=== PATIENT | female | born 1940 | race Caucasian/White ===

== ENCOUNTER 2017-08-15 06:19 | Emergency (ER) | payer MEDICARE, OTHER ==
[~2017-08-15] VITALS: Ht 162.6 cm; Wt 51.7 kg
[2017-08-15 06:47] VITALS: BP 142/73
[2017-08-15] MEDS ORDERED: cefTRIAXone SOD 1,000 MG VL ONE (07:43)
[2017-08-15] MEDS ORDERED: cefTRIAXone SOD 1,000 MG VL IM ONE (07:45)
== END 2017-08-15 08:15 | disposition home or self-care (01) ==
LOC: ER 06:20
DX: L03.113 Cellulitis of right upper limb (principal); E11.9 Type 2 diabetes mellitus without complications; E07.9 Disorder of thyroid, unspecified; Z88.1 Allergy status to other antibiotic agents; Z88.8 Allergy status to other drugs, medicaments and biological substances
CPT/HCPCS: 96372; 99283; J0696

== ENCOUNTER 2017-08-29 03:54 | Emergency (ER) | payer MEDICARE, OTHER ==
[~2017-08-29] VITALS: Ht 165.1 cm; Wt 51.3 kg
[2017-08-29 03:57] VITALS: BP 180/85
[2017-08-29 04:44] LABS: Hemoglobin 13.5 g/dL (12.2-16.2)
[2017-08-29 04:45] LABS: Hematocrit 39.9 % (36.0-46.0); Mean Corpuscular Hemoglobin 35.8 pg (28.0-32.0); Mean Corpuscular Hgb Conc. 33.9 g/dL (32.0-36.0); Mean Corpuscular Volume 105.6 fL (80.0-100.0); Mean Platelet Volume 9.2 fL (6.9-10.8); Platelet Count (auto) 163 10^3/uL (140-450); Red Cell Distribution Width 14.3 % (11.8-14.3); White Blood Cell 3.6 10^3/uL (4.4-10.8)
[2017-08-29 04:54] LABS: Metamyelocytes % 0; Myelocytes % 0; Promyelocytes % 0; Reactive Lymphocytes 0
[2017-08-29 05:03] LABS: Albumin 3.4 g/dL (3.4-5.0); BUN/Creatinine Ratio 22.3; Bilirubin, Total 0.5 mg/dL (0.2-1.0); Calcium 8.8 mg/dL (8.5-10.1); Potassium 4.4 mmol/L (3.5-5.1); Total Protein 6.9 g/dL (6.4-8.2)
[2017-08-29 12:36] LABS: Platelet Estimate Adequate
[2017-08-29 12:37] LABS: Ovalocytes FEW
[2017-08-29 12:38] LABS: Burr Cells FEW; Macrocytosis Moderate
== END 2017-08-29 06:42 | disposition left against medical advice (07) ==
LOC: ER 03:57
DX: L03.113 Cellulitis of right upper limb (principal); Z53.21 Procedure and treatment not carried out due to patient leaving prior to being seen by health care provider
CPT/HCPCS: 36415; 80053; 85007; 85027

== ENCOUNTER → 2019-06-23 | Outpatient (CLI) | payer MEDICARE, OTHER ==
[~2019-06-23] MED LIST: ALBUTEROL SULF 2.5 MG/0.5ML(0.5%) NEB SOLN ONE; ASPI81CH59 PO; BIMA0.01 EACHEYE; BRIM0.2S2 OP; CHOL400C7 PO; DENO60SO; GLUC-163 PO; INSLANTI SC; INSLISPI SC; LEVO25TA6 PO; LOSA25TA38 PO; PROP60CA34 PO
== END | disposition home or self-care (01) ==
LOC: RT 08:36
PROVIDERS: ATTEND Internal Medicine Pulmonary Disease
DX: R05 Cough (principal)
CPT/HCPCS: 94060; J7611

== ENCOUNTER 2021-01-13 11:08 | Emergency (ER) | payer MEDICARE, OTHER ==
[~2021-01-13] VITALS: Ht 160 cm; Wt 53.5 kg
[~2021-01-13 11:08] MED LIST changes: -ALBUTEROL SULF 2.5 MG/0.5ML(0.5%) NEB SOLN ONE
[2021-01-13 12:28] LABS: Urine WBC None Seen /hpf (0 - 5)
[2021-01-13 12:40] LABS: White Blood Cell 2.4 10^3/uL (4.4-10.8)
[2021-01-13 12:42] LABS: Hematocrit 40.5 % (36.0-46.0); Hemoglobin 13.7 g/dL (12.2-16.2); Mean Corpuscular Hemoglobin 34.9 pg (28.0-32.0); Mean Corpuscular Hgb Conc. 33.8 g/dL (32.0-36.0); Mean Corpuscular Volume 103.2 fL (80.0-100.0); Red Blood Cells 3.92 10^6/uL (4.0-5.20); Red Cell Distribution Width 14.6 % (11.8-14.3)
[2021-01-13 12:53] LABS: Anion Gap 4 (5-15); Blood Urea Nitrogen 12 mg/dL (7-18); Calcium 9.3 mg/dL (8.5-10.1); Carbon Dioxide 29 mmol/L (21-32); Chloride 104 mmol/L (98-107); Glucose 144 mg/dL (74-106); Potassium 3.8 mmol/L (3.5-5.1); Sodium 137 mmol/L (136-145)
[2021-01-13 13:02] LABS: BUN/Creatinine Ratio 13.3; GFR African American 77 mL/min; GFR Non-African American 64 mL/min
[2021-01-13 13:24] LABS: Urine Bacteria NONE SEEN /hpf (None Seen); Urine Blood Negative /uL (Negative); Urine Specific Gravity 1.005 (1.001-1.035)
[2021-01-13 13:35] LABS: Basophils % (manual) 0 (0.0-2.0); Blast Cells 0; Myelocytes % 0; Promyelocytes % 0; Reactive Lymphocytes 0
[2021-01-13 14:46] LABS: Band Neutrophils % (manual) 7; Eosinophils % (manual) 5 (0-7); Lymphocytes % (manual) 29 (10.0-50.0); Metamyelocytes % 1; Monocytes % (manual) 17 (0-12)
[2021-01-13 15:43] VITALS: BP 154/62
== END 2021-01-13 15:39 | disposition home or self-care (01) ==
LOC: ER 11:08
DX: M79.89 Other specified soft tissue disorders (principal); I10 Essential (primary) hypertension; E11.65 Type 2 diabetes mellitus with hyperglycemia; D75.89 Other specified diseases of blood and blood-forming organs; E78.5 Hyperlipidemia, unspecified
CPT/HCPCS: 36415; 80048; 81001; 84443; 84484; 85007; 85027; 85379; 93971

== ENCOUNTER 2022-01-09 10:10 | Emergency (ER) | payer MEDICARE, OTHER ==
[~2022-01-09] VITALS: Ht 160 cm; Wt 49.9 kg
[2022-01-09 10:55] VITALS: BP 140/78
[2022-01-09] MEDS ORDERED: PANTOPRAZOLE 40 MG/10 ML VIAL INJ IV ONE (11:00)
[2022-01-09 11:36] LABS: Potassium 3.8 mmol/L (3.5-5.1)
[2022-01-09 11:39] LABS: Urine Bacteria NONE SEEN /hpf (None Seen); Urine Blood Negative /uL (Negative); Urine Specific Gravity 1.003 (1.001-1.035); Urine WBC <1 /hpf (0 - 5)
[2022-01-09 11:53] LABS: Albumin 3.4 g/dL (3.4-5.0); Bilirubin, Total 0.4 mg/dL (0.2-1.0); Calcium 9.3 mg/dL (8.5-10.1); Magnesium 2.5 mg/dL (1.6-2.6); Total Protein 6.8 g/dL (6.4-8.2)
[2022-01-09 11:58] LABS: Hematocrit 38.4 % (36.0-46.0); Hemoglobin 13.2 g/dL (12.2-16.2); Mean Corpuscular Hemoglobin 35.6 pg (28.0-32.0); Mean Corpuscular Hgb Conc. 34.5 g/dL (32.0-36.0); Mean Corpuscular Volume 103.4 fL (80.0-100.0); Red Blood Cells 3.72 10^6/uL (4.0-5.20); Red Cell Distribution Width 14.5 % (11.8-14.3); White Blood Cell 2.8 10^3/uL (4.4-10.8)
[2022-01-09 12:00] LABS: Amylase 85 U/L (25-115); Lipase 60 U/L (73-393)
[2022-01-09 12:02] LABS: Basophils % (manual) 0 (0.0-2.0); Blast Cells 0; Eosinophils % (manual) 0 (0-7); Metamyelocytes % 0; Myelocytes % 0; Promyelocytes % 0; Reactive Lymphocytes 0
[2022-01-09] MEDS ORDERED: PANT40TA2 PO (12:42)
[2022-01-09 13:09] LABS: Band Neutrophils % (manual) 1; Lymphocytes % (manual) 18 (10.0-50.0); Monocytes % (manual) 14 (0-12)
== END 2022-01-09 13:09 | disposition home or self-care (01) ==
LOC: ER 10:10
DX: R10.13 Epigastric pain (principal); E11.22 Type 2 diabetes mellitus with diabetic chronic kidney disease; N18.9 Chronic kidney disease, unspecified; E78.5 Hyperlipidemia, unspecified; Z88.1 Allergy status to other antibiotic agents; Z88.2 Allergy status to sulfonamides
CPT/HCPCS: 36415; 74176; 80053; 81001; 82150; 83690; 83735; 84484; 85007; 85027; 93005; 96374; 99285; C9113

== ENCOUNTER 2022-06-01 11:07 | Emergency (ER) | payer MEDICARE, OTHER ==
[~2022-06-01] VITALS: Ht 165.1 cm; Wt 54.0 kg
[~2022-06-01 11:07] MED LIST changes: +PANT40TA2 PO
[2022-06-01 13:06] LABS: Urine Bacteria NONE SEEN /hpf (None Seen); Urine Blood Negative /uL (Negative); Urine Specific Gravity 1.005 (1.001-1.035); Urine WBC 1 /hpf (0 - 5)
[2022-06-01 14:10] LABS: Basophils # (auto) 0 10 ^3/uL (0-0.2); Basophils % (auto) 0.2 % (0.0-2.0); Eosinophils # (auto) 0 10 ^3/uL (0-0.8); Hemoglobin 13.7 g/dL (12.2-16.2); Lymphocytes # (auto) 0.9 10 ^3/uL (0.4-5.4); Monocytes # (auto) 0.6 10 ^3/uL (0-1.3); Red Blood Cells 4.09 10^6/uL (4.0-5.20); White Blood Cell 5.5 10^3/uL (4.4-10.8)
[2022-06-01 14:13] LABS: Hematocrit 42.4 % (36.0-46.0); Lymphocytes % (auto) 16.4 % (10.0-50.0); Mean Corpuscular Hemoglobin 33.5 pg (28.0-32.0); Mean Corpuscular Hgb Conc. 32.3 g/dL (32.0-36.0); Mean Corpuscular Volume 103.7 fL (80.0-100.0); Monocytes % (auto) 10.3 % (0.0-12.0); Neutrophils % (auto) 73.1 % (37.0-80.0); Nucleated Red Blood Cells % 0.1 %
[2022-06-01 14:23] LABS: Albumin 3.7 g/dL (3.4-5.0); Calcium 9.3 mg/dL (8.5-10.1); Potassium 4.1 mmol/L (3.5-5.1)
[2022-06-01 14:25] LABS: BUN/Creatinine Ratio 13.2
[2022-06-01 14:27] LABS: Bilirubin, Total 0.4 mg/dL (0.2-1.0); Total Protein 7.4 g/dL (6.4-8.2)
[2022-06-01] MEDS ORDERED: PHEN200T16 PO (15:36)
[2022-06-01] MEDS ORDERED: MELO7.5T9 PO (15:36)
[2022-06-01 15:40] VITALS: BP 140/72
== END 2022-06-01 15:46 | disposition home or self-care (01) ==
LOC: ER 11:07
DX: N39.0 Urinary tract infection, site not specified (principal); K57.30 Diverticulosis of large intestine without perforation or abscess without bleeding; M51.35 Other intervertebral disc degeneration, thoracolumbar region; E11.9 Type 2 diabetes mellitus without complications; E78.5 Hyperlipidemia, unspecified
CPT/HCPCS: 36415; 74176; 80053; 81001; 85025

== ENCOUNTER 2022-08-23 03:40 | Inpatient (IN) | payer MEDICARE, OTHER ==
[~2022-08-23] VITALS: Ht 165.1 cm; Wt 55.0 kg
[~2022-08-23 03:40] MED LIST changes: +BRIM0.2S2 EACHEYE; -BRIM0.2S2 OP; +MELO7.5T9 PO; +PHEN200T16 PO
[2022-08-23] MEDS ORDERED: ASPirin 81 mg TAB PO ONE (04:15)
[2022-08-23] MEDS ORDERED: INSULIN LISPRO (HUMAN) 100 UNITS/ML ML SC ONE (05:45)
[2022-08-23] MEDS ORDERED: SODIUM CHLORIDE 0.9% 1,000 ML IV ONE (05:45)
[2022-08-23] MEDS ORDERED: ASPirin-EC 325mg tab PO ONE (05:45)
[2022-08-23 06:39] LABS: Basophils # (auto) 0 10 ^3/uL (0-0.2); Basophils % (auto) 0.5 % (0.0-2.0); Eosinophils # (auto) 0 10 ^3/uL (0-0.8); Lymphocytes # (auto) 0.7 10 ^3/uL (0.4-5.4); Monocytes # (auto) 0.4 10 ^3/uL (0-1.3); Neutrophils # (auto) 2.4 10 ^3/uL (1.6-8.6); Nucleated Red Blood Cells % 0.1 %; White Blood Cell 3.5 10^3/uL (4.4-10.8)
[2022-08-23 06:41] LABS: Hematocrit 41.9 % (36.0-46.0); Hemoglobin 13.9 g/dL (12.2-16.2); Lymphocytes % (auto) 19.2 % (10.0-50.0); Mean Corpuscular Hemoglobin 34.4 pg (28.0-32.0); Mean Corpuscular Hgb Conc. 33.2 g/dL (32.0-36.0); Mean Corpuscular Volume 103.3 fL (80.0-100.0); Neutrophils % (auto) 68.3 % (37.0-80.0); Red Blood Cells 4.05 10^6/uL (4.0-5.20); Red Cell Distribution Width 14.2 % (11.8-14.3)
[2022-08-23 06:58] LABS: Albumin 3.5 g/dL (3.4-5.0); Calcium 9.7 mg/dL (8.5-10.1); Potassium 4.3 mmol/L (3.5-5.1)
[2022-08-23 07:01] LABS: BUN/Creatinine Ratio 13.8; Bilirubin, Total 0.4 mg/dL (0.2-1.0); Total Protein 7.1 g/dL (6.4-8.2)
[2022-08-23] MEDS ORDERED: ONDANSETRON HCL 4 MG/2 ML VIAL IV PRN (10:45)
[2022-08-23] MEDS ORDERED: HYDROcodone-ACET 5/325MG TAB PO PRN (10:45)
[2022-08-23] MEDS ORDERED: ACETAMINOPHEN 325 MG TAB PO PRN (10:45)
[2022-08-23] MEDS ORDERED: NITROGLYCERIN 0.4 MG SL TAB SL PRN (10:45)
[2022-08-23] MEDS ORDERED: MORPHINE SULFATE INJ 2 MG/ml SYRG IV PRN (10:45)
[2022-08-23] MEDS ORDERED: DOCUSATE SOD 100 MG CAP PO PRN (10:45)
[2022-08-23 11:08] LABS: Cholesterol 179 mg/dL (< 200)
[2022-08-23 11:11] LABS: HDL Cholesterol 71 mg/dL (40-59); LDL Cholesterol 105 mg/dL (< 100); Triglycerides 69 mg/dL (< 150)
[2022-08-23] MEDS ORDERED: CIME200T6 PO (11:43)
[2022-08-23] MEDS ORDERED: NETA0.02 LEFTEYE (11:43)
[2022-08-23] MEDS ORDERED: LEVO75TA6 PO (11:43)
[2022-08-23] MEDS ORDERED: LEVO50TA7 PO (11:43)
[2022-08-23] MEDS ORDERED: DEXTROSE (50%) 50ML SYRG IV PRN (12:00)
[2022-08-23 14:01] VITALS: BP 111/59
[2022-08-23] MEDS ORDERED: ACCU-CHEK COMFORT CURVE STRIP VI SCH (17:00)
[2022-08-23] MEDS ORDERED: InsuLIN REG 1unit/0.01ml Soln (100units/ml) SC SCH (17:00)
[2022-08-23] MEDS ORDERED: RHOPRESSA LEFTEYE SCH (22:00)
[2022-08-23] MEDS ORDERED: ATORVASTATIN 20 MG TAB PO SCH (22:00)
[2022-08-23] MEDS ORDERED: MELATONIN 5 MG TAB PO SCH (22:00)
[2022-08-23] MEDS ORDERED: BRIMONIDINE TARTRATE TIMOLOL M EACHEYE SCH (22:00)
[2022-08-24] MEDS ORDERED: LEVOTHYROXINE SODIUM 25 MCG TAB PO SCH (07:00)
[2022-08-24] MEDS ORDERED: PANTOPRAZOLE 40 MG TAB PO SCH (10:00)
[2022-08-24] MEDS ORDERED: ENOXAPARIN SOD 40 MG/0.4 ML SYRINGE SC SCH (10:00)
[2022-08-24] MEDS ORDERED: ASPirin 81 mg TAB PO SCH (10:00)
[2022-08-24] MEDS ORDERED: LOSARTAN POTASSIUM 25 MG TAB PO SCH (10:00)
== END 2022-08-23 21:30 | disposition left against medical advice (07) | DRG 305 ==
LOC: EDBD 03:40 → ER 03:40 → TELE 10:49
PROVIDERS: ADMIT Nurse Practitioner Family; ATTEND Nurse Practitioner Family
DX: I16.9 Hypertensive crisis, unspecified (principal); I24.9 Acute ischemic heart disease, unspecified; E11.9 Type 2 diabetes mellitus without complications; Z53.29 Procedure and treatment not carried out because of patient's decision for other reasons; E78.5 Hyperlipidemia, unspecified; H40.9 Unspecified glaucoma; I10 Essential (primary) hypertension; Z80.0 Family history of malignant neoplasm of digestive organs; Z82.49 Family history of ischemic heart disease and other diseases of the circulatory system; Z88.1 Allergy status to other antibiotic agents; Z88.2 Allergy status to sulfonamides; Z79.4 Long term (current) use of insulin
CPT/HCPCS: 36415; 71045; 80053; 80061; 83036; 83690; 83880; 84484; 85025; 93005; 96360; G0378; J1815